=== PATIENT | female | born 1970 | race African-American/Black ===

== ENCOUNTER 2019-01-18 15:03 | Inpatient (IN) ==
[2019-01-18 16:22] LABS: Eosinophils % 0.2 % (0.00-10.9); Immature Granulocytes % 0.2 %; Immature Granulocytes Absolute 0.01 #; Lymphocytes # 1.1 10*3/uL (1.4-4.0); Lymphocytes % 21.6 % (21.3-54.2); Mean Corpuscular HGB Conc 25.5 GM/DL (32-36); Mean Corpuscular Volume 73.4 FL (87-102); Mean Platelet Volume 10.7 FL (9.6-12.0); Monocytes % 4.9 % (1.7-12.7); Neutrophils % 73.1 % (38.7-73.9); Platelet Count 216 T/CUMM (130-400); Red Blood Count 1.28 MC/CUMM (3.8-5.5); Red Cell Distribution Width 19.5 % (9.3-17.3); White Blood Count 5.1 T/CUMM (4-12)
[2019-01-18 16:25] LABS: INR 1.1; PT Patient Result 11.5 SECS
[2019-01-18 16:31] LABS: Hematocrit 9.4 VOL% (35.7-47.0); Hemoglobin 2.4 GM/DL (12.0-16.0)
[2019-01-18 16:38] LABS: Albumin 3.7 G/DL (3.4-5.0); Bilirubin,Total 0.4 MG/DL (0.2-1.0); Calcium 8.6 MG/DL (8.5-10.1); Osmolality,Calculated 273.7 MOS/KG (273-304); Total Protein 7.4 G/DL (6.4-8.3)
[2019-01-18] MEDS ORDERED: POTASSIUM CHLORIDE 20 MEQ TABLET PO STA (16:46)
[2019-01-18] MEDS ORDERED: ACETAMINOPHEN 325 MG TABLET PO PRN (17:13)
[2019-01-18] MEDS ORDERED: SODIUM CHLORIDE 0.9% 1,000 ML IV PRN (17:13)
[2019-01-18] MEDS ORDERED: ONDANSETRON 4 MG/2 ML VIAL IV PRN (17:13)
[2019-01-18] MEDS ORDERED: ALBUTEROL 2.5 MG/3 ML NEB RESP TX PRN (17:13)
[2019-01-18 17:58] LABS: Apearance,Urine Slightly Hazy (Clear); Bilirubin,Urine Negative (Negative); Blood, Urine Negative (Negative); Glucose,Urine (UA) Negative (Negative); Ketones,Urine Negative (Negative); Nitrite,Urine Negative (Negative); Protein,Urine Negative; Urine Color Yellow (Yellow)
[2019-01-18 18:03] LABS: Squamous Epithelial Cell,Urine Few /HPF (0-10)
[2019-01-18 18:04] LABS: Bacteria,Urine Few /HPF (Few)
[2019-01-18 18:36] LABS: Eosinophils % 0.3 % (0.00-10.9); Immature Granulocytes % 0.2 %; Immature Granulocytes Absolute 0.01 #; Lymphocytes # 1.3 10*3/uL (1.4-4.0); Lymphocytes % 22.2 % (21.3-54.2); Mean Corpuscular Volume 75.2 FL (87-102); Mean Platelet Volume 11.3 FL (9.6-12.0); Monocytes % 4.4 % (1.7-12.7); Neutrophils % 72.9 % (38.7-73.9); Platelet Count 239 T/CUMM (130-400); Red Blood Count 1.33 MC/CUMM (3.8-5.5); Red Cell Distribution Width 19.4 % (9.3-17.3); White Blood Count 5.7 T/CUMM (4-12)
[2019-01-18 18:39] LABS: Hemoglobin 2.5 GM/DL (12.0-16.0)
[2019-01-18 18:54] LABS: Vitamin B12 246 PG/ML (211-911)
[2019-01-18 20:05] LABS: Sedimentation Rate-Westergren 65 MM/HR (0-20)
[2019-01-18] MEDS ORDERED: NORGESTIMATE ETHINYL ESTRADIOL PO SCH (21:00)
[2019-01-18] MEDS ORDERED: FUROSEMIDE 20 MG/2 ML VIAL IV ONE (23:00)
[2019-01-19 02:02] LABS: Hematocrit 21.2 VOL% (35.7-47.0)
[2019-01-19 02:04] LABS: Hemoglobin 6.4 GM/DL (12.0-16.0)
[2019-01-19] MEDS ORDERED: CALCIUM GLUCONATE 1,000 MG in SODIUM CHLORIDE 0.9% 100 ML IV ONE (02:11)
[2019-01-19] MEDS ORDERED: PANTOPRAZOLE 40 MG TABLET PO SCH ×2 (09:00)
[2019-01-19 09:23] LABS: Hematocrit 28.6 VOL% (35.7-47.0)
[2019-01-19 09:40] LABS: Hemoglobin A1 (Alkaline) 97.2 % (96.5-98.5); Hemoglobin A2 (Alkaline) 2.8 % (1.5-3.5)
[2019-01-19 09:48] LABS: Calcium 8.9 MG/DL (8.5-10.1); Osmolality,Calculated 278.3 MOS/KG (273-304)
[2019-01-19] MEDS ORDERED: LEUPROLIDE 11.25 MG IM ONE (13:00)
[2019-01-19 14:16] VITALS: BP 125/76
== END 2019-01-19 16:15 | disposition home or self-care (01) | DRG 812 ==
LOC: N.ED 15:03 → N.EDINP 17:13 → N.CC 17:41
PROVIDERS: ADMIT Internal Medicine; ATTEND Internal Medicine

== ENCOUNTER 2019-05-02 06:21 | Inpatient (IN) ==
[2019-05-02 08:07] LABS: Basophils % 0.3 % (0.0-0.8); Eosinophils # 0.1 10*3/uL (0.0-0.87); Eosinophils % 1.2 % (0.00-10.9); Hematocrit 33.9 VOL% (35.7-47.0); Hemoglobin 10.5 GM/DL (12.0-16.0); Immature Granulocytes % 0.3 %; Immature Granulocytes Absolute 0.02 #; Lymphocytes # 1.3 10*3/uL (1.4-4.0); Lymphocytes % 21.9 % (21.3-54.2); Mean Corpuscular Volume 97.7 FL (87-102); Mean Platelet Volume 10.5 FL (9.6-12.0); Monocytes % 6.2 % (1.7-12.7); Neutrophils % 70.1 % (38.7-73.9); Platelet Count 236 T/CUMM (130-400); Red Blood Count 3.47 MC/CUMM (3.8-5.5); Red Cell Distribution Width 14.9 % (9.3-17.3); White Blood Count 5.8 T/CUMM (4-12)
[2019-05-02] MEDS ORDERED: LACTATED RINGERS 1,000 ML IV SCH (08:30)
[2019-05-02] MEDS ORDERED: cefOXitin 2,000 MG in SYRINGE 1 EACH IV ONE (09:00)
[2019-05-02] MEDS ORDERED: BUPIVACAINE 0.5% 50 ML VIAL ONE (10:14)
[2019-05-02] MEDS ORDERED: DEXAMETHASONE 4 MG/1 ML VIAL ONE ×3 (10:14→15:25)
[2019-05-02] MEDS ORDERED: LIDOCAINE 1% 5 ML VIAL ONE (10:14)
[2019-05-02] MEDS ORDERED: EPINEPHrine 1 MG/ML VIAL ONE (10:14)
[2019-05-02] MEDS ORDERED: MIDAZOLAM 2 MG/2 ML VIAL ONE ×2 (10:14→15:24)
[2019-05-02] MEDS ORDERED: NALOXONE 0.4 MG/ML VIAL IV PRN (15:08)
[2019-05-02] MEDS ORDERED: fentaNYL 100 MCG/2 ML VIAL ONE (15:24)
[2019-05-02] MEDS ORDERED: PROPOFOL 200 MG/20 ML VIAL IV ONE (15:24)
[2019-05-02] MEDS ORDERED: ONDANSETRON 4 MG/2 ML VIAL ONE (15:25)
[2019-05-02] MEDS ORDERED: LACTATED RINGERS 2,000 ML IV ONE (15:25)
[2019-05-02] MEDS ORDERED: NEOSTIGMINE 10 MG/10 ML VIAL ONE (15:25)
[2019-05-02] MEDS ORDERED: GLYCOPYRROLATE 0.4 MG/2 ML VIAL ONE (15:25)
[2019-05-02] MEDS ORDERED: ROCURONIUM 100 MG/10 ML VIAL IV ONE (15:25)
[2019-05-02] MEDS ORDERED: SEVOFLURANE 1 UNIT/15 MINUTE INH ONE (15:25)
[2019-05-02] MEDS ORDERED: KETOROLAC 30 MG/1 ML VIAL ONE (15:25)
[2019-05-02 15:26] LABS: Apearance,Urine CLEAR (Clear); Bacteria,Urine Occasional /HPF (Few); Bilirubin,Urine Negative (Negative); Blood, Urine Negative (Negative); Glucose,Urine (UA) Negative (Negative); Ketones,Urine 5 mg/dL (Negative); Nitrite,Urine Negative (Negative); Protein,Urine Negative; RBC,Urine 1 /HPF (0-4); Urine Color Straw (Yellow); Urine Specific Gravity 1.005 (1.001-1.035); Urine Urobilinogen < 2.0 EU/DL (0.2-1.0); WBC,Urine <1 /HPF (0-6)
[2019-05-02] MEDS: HYDROmorphone PCA 30 MG/30 ML SYRINGE IV SCH (16:12)
[2019-05-02] MEDS ORDERED: KETOROLAC 30 MG/1 ML VIAL IV SCH ×2 (17:05→21:00)
[2019-05-02] MEDS ORDERED: BENZOCAINE/MENTHOL LOZENGE 18/BOX PO PRN (17:05)
[2019-05-02] MEDS ORDERED: BISACODYL 10 MG SUPP RECTAL PRN (17:05)
[2019-05-02] MEDS ORDERED: DOCUSATE SODIUM 100 MG CAPSULE PO PRN (17:05)
[2019-05-02] MEDS ORDERED: ONDANSETRON 4 MG/2 ML VIAL IV PRN (17:05)
[2019-05-02] MEDS: KETOROLAC 30 MG/1 ML VIAL IV SCH (18:30)
[2019-05-02] MEDS: LACTATED RINGERS 1,000 ML IV SCH ×2 (19:43)
[2019-05-03] MEDS: KETOROLAC 30 MG/1 ML VIAL IV SCH ×3 (00:45→11:39)
[2019-05-03] MEDS: LACTATED RINGERS 1,000 ML IV SCH (04:37)
[2019-05-03] MEDS: HYDROmorphone PCA 30 MG/30 ML SYRINGE IV SCH (05:30)
[2019-05-03 05:33] LABS: Basophils % 0.1 % (0.0-0.8); Hematocrit 28.2 VOL% (35.7-47.0); Hemoglobin 8.8 GM/DL (12.0-16.0); Immature Granulocytes % 0.4 %; Immature Granulocytes Absolute 0.04 #; Lymphocytes % 10.6 % (21.3-54.2); Mean Corpuscular HGB Conc 31.2 GM/DL (32-36); Mean Corpuscular Volume 97.9 FL (87-102); Mean Platelet Volume 10.4 FL (9.6-12.0); Monocytes % 7.9 % (1.7-12.7); Platelet Count 242 T/CUMM (130-400); Red Blood Count 2.88 MC/CUMM (3.8-5.5); Red Cell Distribution Width 14.5 % (9.3-17.3); White Blood Count 9.1 T/CUMM (4-12)
[2019-05-03] MEDS: MAGNESIUM HYDROXIDE SUSP 30 ML UDCUP PO PRN ×2 (08:59→21:20)
[2019-05-03] MEDS ORDERED: SIMETHICONE CHEW 80 MG TABLET PO PRN (15:24)
[2019-05-03] MEDS: IBUPROFEN 800 MG TABLET PO SCH (20:54)
[2019-05-03] MEDS: DOCUSATE SODIUM 100 MG CAPSULE PO SCH (21:19)
[2019-05-03] MEDS: SIMETHICONE CHEW 80 MG TABLET PO PRN (22:12)
[2019-05-04] MEDS: IBUPROFEN 800 MG TABLET PO SCH ×3 (04:25→23:17)
[2019-05-04] MEDS: MAGNESIUM HYDROXIDE SUSP 30 ML UDCUP PO PRN (09:19)
[2019-05-04] MEDS: DOCUSATE SODIUM 100 MG CAPSULE PO SCH ×2 (09:21→23:11)
[2019-05-04] MEDS: SIMETHICONE CHEW 80 MG TABLET PO PRN ×2 (10:44→23:17)
[2019-05-05 07:55] VITALS: BP 110/52
[2019-05-05] MEDS: IBUPROFEN 800 MG TABLET PO SCH (09:30)
[2019-05-05] MEDS: DOCUSATE SODIUM 100 MG CAPSULE PO SCH (12:08)
== END 2019-05-05 10:25 | disposition designated cancer center or children's hospital (05) | DRG 743 ==
LOC: N.OR 06:21 → N.SDSINP 06:21 → N.OB 15:03
PROVIDERS: ADMIT Obstetrics & Gynecology; ATTEND Obstetrics & Gynecology